=== PATIENT | female | born 1975 | race Two or more races ===

== ENCOUNTER 2021-04-15 14:25 | Emergency (ER) | payer OTHER ==
[2021-04-15] MEDS ORDERED: DIPHTH,PERTUSS(ACELL),TET 0.5 ML DISP.SYRIN IM ONE (14:43)
[2021-04-15] MEDS ORDERED: IBUPROFEN 400 MG TABLET (FP) PO ONE (14:43)
[2021-04-15 15:15] VITALS: BP 104/72; PULSE 82; TEMP 97.9; BMI 27.4
== END 2021-04-15 15:29 | disposition home or self-care (01) ==
LOC: FER 14:25
PROC: 3E0234Z Introduction of Serum, Toxoid and Vaccine into Muscle, Percutaneous Approach (ICD-10-PCS; principal; 2021-04-15)
DX: R07.81 Pleurodynia (principal)
CPT/HCPCS: 71046-TC-FY; 90715; 99283-25

== ENCOUNTER 2022-05-02 09:33 | Emergency (ER) | payer BC, OTHER ==
[2022-05-02 09:55] VITALS: BP 110/66; PULSE 75; RESP 18; TEMP 97.8; BMI 27.4
[2022-05-02] MEDS ORDERED: ACETAMINOPHEN 325 MG TABLET (FP) PO ONE (10:01)
[2022-05-02] MEDS ORDERED: ACETAMINOPHEN 325 MG TABLET (FP) ONE (10:02)
== END 2022-05-02 10:50 | disposition home or self-care (01) ==
LOC: FER 09:33
DX: S23.41XA Sprain of ribs, initial encounter (principal); X58.XXXA Exposure to other specified factors, initial encounter
CPT/HCPCS: 71046-TC-FY; 99283-25